=== PATIENT | male | born 1980 | race Asian ===

== ENCOUNTER 2018-03-30 11:23 | Emergency (ER) | payer OTHER ==
[~2018-03-30] VITALS: Ht 175.3 cm; Wt 122.5 kg
[2018-03-30 11:31] VITALS: BP 143/93
[2018-03-30] MEDS ORDERED: PREDNISONE 20 M20 M1 PO (11:39)
== END 2018-03-30 11:50 | disposition home or self-care (01) ==
LOC: M.ERS 11:23
DX: M77.9 Enthesopathy, unspecified (principal)

== ENCOUNTER 2018-06-05 18:21 | Emergency (ER) | payer OTHER ==
[~2018-06-05] VITALS: Ht 175.3 cm; Wt 117.9 kg
[~2018-06-05 18:21] MED LIST: PREDNISONE 20 M20 M1 PO
[2018-06-05] MEDS ORDERED: MEDROLDOSEPACK PO (19:50)
[2018-06-05] MEDS ORDERED: ULTRAM 50MG TAB50 MG PO (19:50)
[2018-06-05] MEDS ORDERED: NORFLEX100 MG PO (19:50)
[2018-06-05 20:17] VITALS: BP 126/79
== END 2018-06-05 20:17 | disposition home or self-care (01) ==
LOC: M.ERS 18:21
DX: M54.5 Low back pain (principal)

== ENCOUNTER 2018-07-06 08:07 | Emergency (ER) | payer OTHER ==
[~2018-07-06] VITALS: Ht 175.3 cm; Wt 120.2 kg
[~2018-07-06 08:07] MED LIST changes: +MEDROLDOSEPACK PO; +NORFLEX100 MG PO; +ULTRAM 50MG TAB50 MG PO
[2018-07-06 08:14] VITALS: BP 147/70
== END 2018-07-06 09:15 ==
LOC: M.ERS 08:07
DX: Z53.21 Procedure and treatment not carried out due to patient leaving prior to being seen by health care provider (principal)